=== PATIENT | female | born 1960 | race Caucasian/White ===

== ENCOUNTER 2024-12-12 12:31 | Emergency (ER) | payer BC, SELFPAY ==
[2024-12-12 12:41] VITALS: BP 140/87
[2024-12-12 13:04] LABS: Hematocrit 39.9 % (37.0-47.0); Hemoglobin 13.4 g/dL (12.0-16.0); Mean Corp Hgb Conc. 33.6 g/dL (33.0-37.0); Mean Corpuscular Volume 89.3 fL (81.0-99.0); Nucleated Red Blood Cells % 0 %; Platelet Count 241 10^3/uL (130-400); Red Cell Dist. Width 11.9 % (11.5-14.5)
[2024-12-12 13:16] LABS: ALT (SGPT) 59 U/L (0-35); AST (SGOT) 40 U/L (14-36); Albumin 4.6 g/dl (3.5-5.0); Alkaline Phosphatase 90 U/L (38-126); Blood Urea Nitrogen 12 mg/dl (7-17); Calcium 9.2 mg/dl (8.4-10.2); Carbon Dioxide 29 mmol/L (22-30); Chloride 105 mmol/L (98-107); Glucose 99 mg/dl (70-99); Potassium 4.4 mmol/L (3.5-5.1); Sodium 139 mmol/L (135-145); Total Protein 8.2 g/dl (6.3-8.2); eGFR > 60.00
[2024-12-12 13:33] LABS: Troponin I < 0.012 ng/ml
--- NOTE | 2024-12-12 17:33 | ED.GENMED ---
History of Present Illness
General
Chief Complaint: Breathing Problem
Source: patient
Time Seen by Provider: 12/12/24 17:15
History of Present Illness
History of Present Illness:
Note:
CHIEF COMPLAINT(S)
Chest pain, cough
HISTORY OF PRESENT ILLNESS
The patient is a 64-year-old female who presents with complaints of chest pain and cough which began last week, worsening over the weekend. The pain became more pronounced yesterday, affecting her chest and left arm. She describes the pain as
occurring during minimal exertion while sewing. 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 She
reports a weight lifting limit of 25 pounds but often had to lift over 50 pounds. Additionally, she has been experiencing rib pain when pressure is applied to her chest. The patient had seen her primary care doctor after experiencing these symptoms
initially, which somewhat improved before engaging in further physical activity with preschool children, exacerbating her pain again. She reports the pain being more prominent on the left side and worsening with pressure. She also notes an
intermittent cough.
- VITAL SIGNS
Nursing notes reviewed and vital signs reviewed.
- GENERAL
Appears in no acute distress.
- RESPIRATORY
Intermittent cough, lungs clear bilaterally, no respiratory distress.
- CARDIOVASCULAR
No third or fourth heart sounds detected; regular rhythm and rate.
- HEENT
Nasal mucosa edema, left maxillary tenderness; multiple dental fillings observed.
- ABDOMEN
Soft, non-tender, non-distended.
- EXTREMITIES
Normal pulses in all extremities, no edema.
- NEUROLOGICAL
Cranial nerves two through twelve intact, no neurological deficits.
PROBLEM LIST
- Acute problems: Chest pain, cough, left arm discomfort
- Chronic problems: Back injury with possible rib misalignment
PLAN
1. Obtain a chest X-ray to rule out pneumonia and assess for rib issues.
2. Begin treatment with doxycycline for potential respiratory infection, due to intermittent cough and nasal congestion.
3. Follow up with patients articular X-ray results before concluding visit plan.
DIFFERENTIAL DIAGNOSIS
The Differential Diagnosis includes, in no particular order and is not limited to:
1. Musculoskeletal pain
2. Costochondritis
3. Pneumonia
4. Viral upper respiratory infection
5. Rib fracture or misalignment
6. Myocardial infarction
7. Angina
8. Pleuritis
9. Gastroesophageal reflux disease (GERD)
10. Pulmonary embolism
EKG
My independent EKG interpretation is:
- Date and Time: December 12, 2024, 12:52 p.m.
- Rhythm: Normal sinus rhythm
- Heart Rate: 74 bpm
- ND Interval: Normal
- Notable Observation: SB abnormality noted
- No Signs of Ischemia
Disposition:
SUMMARY OF ENCOUNTER
The patient, a 64-year-old female, presented with chest pain, cough, and left arm discomfort. After examination, it was determined that the chest pain is likely due to musculoskeletal strain, possibly related to a rib misalignment or associated with
her previous back injury. 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 Sinusitis was suggested due to nasal edema and tenderness.
DISPOSITION
Discharge
ASSESSMENT
The patient is assessed with sinusitis and musculoskeletal strain affecting the left arm and shoulder, with no suspicion of acute coronary syndrome (ACS).k
PLAN
The plan includes initiating treatment with doxycycline for potential respiratory infection and obtaining a chest X-ray to rule out pneumonia or other rib issues.
INDEPENDENT REVIEW OF LABS AND INTERPRETATION OF TESTS
- My independent EKG interpretation is a normal sinus rhythm with a heart rate of 74 bpm, ND interval normal, with no signs of ischemia.
- My independent interpretation of the chest X-ray is no signs of pneumonia
PATIENT EDUCATION AND COUNSELING
The patient was advised on the probable musculoskeletal nature of her chest and arm pain and the importance of adhering to weight-lifting restrictions. Education was provided on signs of worsening conditions, and she was advised to seek medical
attention if symptoms like severe chest pain or shortness of breath develop.
FOLLOW-UP INSTRUCTIONS
The patient is advised to follow up with her primary care physician promptly for further evaluation of her symptoms and review of the chest X-ray results.
MEDICATION RECONCILIATION
Doxycycline prescribed to address potential respiratory infection due to intermittent cough and nasal congestion.
MEDICAL DECISION MAKING
1. Number and Complexity of Problems Addressed: Chronic conditions affecting care include musculoskeletal pain and potential respiratory infection (sinusitis). Differential diagnoses considered include musculoskeletal pain, costochondritis,
pneumonia, viral upper respiratory infection, rib fracture or misalignment, myocardial infarction, angina, pleuritis, GERD, and pulmonary embolism.
2. Data:
- Category 1: My independent EKG interpretation indicates normal sinus rhythm with no ischemic changes. A chest X-ray was ordered to assess rib issues.
- Category 2: No additional historian involvement mentioned.
- Category 3: No additional management discussion noted.
3. Risk: Consideration of Admission/Observation: Escalation of care including admission/observation was considered given the complexity and risk of the patients presenting complaint. However, ultimately I feel the patient is safe for outpatient
management with close follow-up. Reasoning: Work-up reassuring, does not reveal any acute life/organ threatening processes, patients symptoms well-controlled upon reevaluation, reexamination is reassuring, vitals are stable, patient agreeable with
discharge, reliable for follow-up.
DIAGNOSIS
1. Musculoskeletal strain of left arm and shoulder - ICD-10: M62.838
2. Acute sinusitis, unspecified - ICD-10: J01.90
Past History
Past History
ED Past Medical History: None
ED Past Surgical History: None
Social History
Tobacco: Non-smoker
Living: with family
Phy Exam
Physical Exam
Physical Exam:
.
Scores
Heart Failure Risk
Heart Failure Risk Score: Not Applicable
Course
Orders/Labs/Results
Orders:
Orders
12/12/24 12:45
ECG [Electrocardiogram (*1)] Urgent
Reason for Study: Chest Pain
EKG- Treatment ONCE
12/12/24 12:56
Complete Blood Count/With Diff Urgent
Comprehensive Metabolic Panel Urgent
Troponin I Urgent
12/12/24 17:16
CR Chest - 2 Views Urgent
Comment:
Reason For Exam: cough
12/12/24 19:27
COVID-19 Antigen Urgent
Source: Nasal Swab
Abnormal Lab Results
12/12/24
12:56
Absolute Monos (auto) 0.7 H 10^3/uL
(0.1-0.6)
AST 40 H U/L
(14-36)
ALT 59 H U/L
(0-35)
12/12/24 12:56
12/12/24 12:56
Vital Signs
Initial and Last Documented VS:
Initial Vital Signs
Temp Pulse Resp BP Pulse Ox
98.6 F 78 16 140/87 96
12/12/24 12:41 12/12/24 12:41 12/12/24 12:41 12/12/24 12:41 12/12/24 12:41
Last Documented Vital Signs
Temp Pulse Resp BP Pulse Ox
98.2 F 82 16 105/93 98
12/12/24 19:28 12/12/24 18:41 12/12/24 18:41 12/12/24 19:00 12/12/24 18:41
*Pulse Oximetry
SaO2: 96
Oxygen Mode of Delivery: Room air
Patient hypoxic: no
*Critical Care Note
Total Time (30-74mins, 75-104mins- exclusive of procedures): Not Applicable
ED Attending Note
-
Portions of this chart may have been created with voice recognition software.� Occasional wrong word or��sound alike� substitutions may have occurred due to the inherent limitations of voice recognition software.
Discharge Plan
Departure
Patient Disposition: Home (Routine Discharge)
Date of Disposition: 12/12/24
Time of Disposition: 19:54
Patient with high blood pressure during this ER visit?: No
Condition: Good
Covid-19: Negative COVID-19
Discharge Problem:
Sinusitis, acute, Acute bronchitis
Instructions: Acute bronchitis in adults, Sinusitis in adults - ED discharge instructions
Prescriptions:
New
doxycycline hyclate 100 mg capsule
100 mg PO BID Qty: 20 0RF
No Action
Advil
2 tab PO PRN (Reason: pain)
propranolol 10 MG tablet
10 mg PO BID
levothyroxine [Synthroid] 125 MCG tablet
125 mcg PO DAILY
dicyclomine 10 MG capsule
10 mg PO BID
ibuprofen-diphenhydramine cit [Advil PM] 1 TAB tablet
1 tab PO HS
prednisone 50 MG tablet
50 mg PO DAILY Qty: 4 0RF
Referrals:
Eulalia Torres DO [Family Provider, Family Practice] - Call in 1-3 days for appt
Interventions
Interventions:
*Risk Screen - Suicide Last Done: 12/12/24 18:41
*General Assessment Last Done: 12/12/24 18:41
*Neglect/Abuse Screening Last Done: 12/12/24 18:41
*ED- Fall Risk Assessment Last Done: 12/12/24 18:41
*ED COVID-19 Vaccine History Last Done: 12/12/24 18:41
ED- Cardiac Assessment Last Done: 12/12/24 18:41
ED- Pulmonary Assessment Last Done: 12/12/24 18:41
Discharge Date and Time
Print Language: CZECH
[2024-12-12 18:40] VITALS: BP 150/83
[2024-12-12 18:41] VITALS: BP 150/83; BMI 29.9
[2024-12-12 19:00] VITALS: BP 105/93
[2024-12-12 19:47] LABS: COVID-19 Antigen Negative (Negative)
[2024-12-12 20:00] VITALS: BP 141/77
[2024-12-12] MEDS: VIBRAMYCIN 100 MG PO (20:17)
== END 2024-12-12 20:22 | disposition home or self-care (01) ==
LOC: EMR 12:31
PROVIDERS: Emergency Medicine; EMERGENCY PHYSICIAN Emergency Medicine; FAMILY PHYSICIAN Family Medicine
DX: S46.912A Strain of unspecified muscle, fascia and tendon at shoulder and upper arm level, left arm, initial encounter (principal); J01.90 Acute sinusitis, unspecified; X50.3XXA Overexertion from repetitive movements, initial encounter; Y93.D2 Activity, sewing; Z11.52 Encounter for screening for COVID-19
CPT/HCPCS: 99284; 71046; 80053; 84484; 85025; 87811; 93005

== ENCOUNTER → 2025-01-03 08:41 | Outpatient (REF) | payer BC, SELFPAY | LOC: HWRAD 08:41 | PROVIDERS: ATTENDING PHYSICIAN Family Medicine | DX: M54.2 Cervicalgia (principal); R20.0 Anesthesia of skin | CPT/HCPCS: 72050 ==

== ENCOUNTER → 2025-05-17 19:05 | Outpatient (REF) | payer BC, SELFPAY | LOC: PAVMRI 19:05 | PROVIDERS: ATTENDING PHYSICIAN Family Medicine | DX: M54.2 Cervicalgia (principal); R20.2 Paresthesia of skin; M24.819 Other specific joint derangements of unspecified shoulder, not elsewhere classified | CPT/HCPCS: 72141; 73221 ==